=== PATIENT | male | born 1955 | race Caucasian/White ===

== ENCOUNTER → 2021-01-14 | Outpatient (CLI) | payer MEDICARE, OTHER ==
[~2021-01-14] MED LIST: ASPIRIN 325MG325 MG PO; CLEOCIN HCL300 MG PO; HYDROCODON-ACE1 EAC2 PO; HYDROCODON-ACE1 EAC4 PO; LEVAQUIN750 MG PO; NITROSTAT0.4 MG SL; NORCO 10-325 T1 EACH PO; PATANOL OP SOLN5 ML OU; PERCOCET 5/325 T1 EA PO; PREGABALIN 25 MG PO; PRINIVIL10 MG PO; PROTONIX40 MG PO; VITAMIN C 500500 MG PO; VITAMIN D35000 UNI1 PO
[2021-01-14 11:35] LABS: BUN/CREATININE RATIO 11 (0-10)
== END ==
LOC: LAB 10:41
PROVIDERS: Family Medicine
DX: N20.0 Calculus of kidney (principal)
CPT/HCPCS: 36415; 80053

== ENCOUNTER 2021-03-01 19:25 | Emergency (ER) | payer MEDICARE, OTHER ==
[~2021-03-01 19:25] MED LIST changes: -HYDROCODON-ACE1 EAC2 PO; -HYDROCODON-ACE1 EAC4 PO; -PREGABALIN 25 MG PO
[2021-05-02] MEDS ORDERED: HYDROCODON-ACE1 EAC2 PO ×2 (08:38→14:15)
[2021-05-02] MEDS ORDERED: PREGABALIN 25 MG PO (08:46)
== END 2021-03-01 21:00 | disposition home or self-care (01) ==
LOC: ER1 19:25
DX: S83.92XA Sprain of unspecified site of left knee, initial encounter (principal); K21.9 Gastro-esophageal reflux disease without esophagitis; I10 Essential (primary) hypertension; X50.1XXA Overexertion from prolonged static or awkward postures, initial encounter; Y92.009 Unspecified place in unspecified non-institutional (private) residence as the place of occurrence of the external cause
CPT/HCPCS: 29530; 73564; 99283

== ENCOUNTER → 2021-03-21 | Outpatient (CLI) | payer MEDICARE, OTHER ==
[~2021-03-21] MED LIST changes: +HYDROCODON-ACE1 EAC2 PO; +HYDROCODON-ACE1 EAC4 PO; +PREGABALIN 25 MG PO
== END ==
LOC: KOH-I 11:13
DX: S83.412A Sprain of medial collateral ligament of left knee, initial encounter (principal)
CPT/HCPCS: 73721

== ENCOUNTER 2021-04-05 07:25 | Emergency (ER) | payer MEDICARE, OTHER ==
[~2021-04-05 07:25] MED LIST changes: -HYDROCODON-ACE1 EAC2 PO; -HYDROCODON-ACE1 EAC4 PO; -PREGABALIN 25 MG PO
[2021-04-05 08:12] LABS: HEMOGLOBIN 13.1 gm/dl (14.0-17.5); RED BLOOD COUNT 3.79 M/UL (4.20-5.50)
[2021-04-05 08:56] LABS: BUN/CREATININE RATIO 13 (0-10)
[2021-04-05] MEDS ORDERED: HYDROCODON-ACE1 EAC4 PO (11:36)
[2021-05-02] MEDS ORDERED: HYDROCODON-ACE1 EAC2 PO ×2 (08:38→14:15)
[2021-05-02] MEDS ORDERED: PREGABALIN 25 MG PO (08:46)
== END 2021-04-05 12:13 | disposition home or self-care (01) ==
LOC: ER1 07:25
PROVIDERS: Emergency Medicine
DX: N20.1 Calculus of ureter (principal); N28.1 Cyst of kidney, acquired; I10 Essential (primary) hypertension; K21.9 Gastro-esophageal reflux disease without esophagitis; Z87.442 Personal history of urinary calculi; Z90.49 Acquired absence of other specified parts of digestive tract
CPT/HCPCS: 71045; 80053; 81001; 82550; 82553; 83605; 83690; 83874; 84484; 85025; 85379; 87040; 93005; 99284

== ENCOUNTER → 2021-05-02 | Day surgery (SDC) | payer MEDICARE, OTHER ==
[~2021-05-02] VITALS: Ht 190.5 cm; Wt 127.0 kg
[~2021-05-02] MED LIST changes: +HYDROCODON-ACE1 EAC2 PO; +HYDROCODON-ACE1 EAC4 PO; +PREGABALIN 25 MG PO
== END | disposition home or self-care (01) ==
LOC: OR 07:22
DX: S83.232A Complex tear of medial meniscus, current injury, left knee, initial encounter (principal); M94.262 Chondromalacia, left knee; S82.012A Displaced osteochondral fracture of left patella, initial encounter for closed fracture; I10 Essential (primary) hypertension; E78.5 Hyperlipidemia, unspecified; K21.9 Gastro-esophageal reflux disease without esophagitis; Z90.49 Acquired absence of other specified parts of digestive tract; Z20.822 Contact with and (suspected) exposure to COVID-19; X58.XXXA Exposure to other specified factors, initial encounter; K76.0 Fatty (change of) liver, not elsewhere classified; R73.03 Prediabetes
CPT/HCPCS: J0171; J0690; J1100; J1170; J2001; J2405; J2704; J2765; J3010; J7120

== ENCOUNTER → 2022-06-04 | Outpatient (CLI) | payer MEDICARE, OTHER | LOC: KOH-I 09:37 | DX: M79.672 Pain in left foot (principal); M19.072 Primary osteoarthritis, left ankle and foot | CPT/HCPCS: 73630 ==